=== PATIENT | female | born 1985 | race Caucasian/White ===

== ENCOUNTER 2022-12-03 00:31 | Emergency (ER) | payer MEDICAID ==
[~2022-12-03] VITALS: Ht 165.1 cm; Wt 70.0 kg
[2022-12-03 00:50] VITALS: BP 120/69; PULSE 93; RESP 18; TEMP 98.2; O2SAT 100
== END 2022-12-03 06:55 | disposition home or self-care (01) ==
LOC: ER 00:40
DX: F10.129 Alcohol abuse with intoxication, unspecified (principal); Y90.8 Blood alcohol level of 240 mg/100 ml or more
CPT/HCPCS: 80320; 36415; 99283; Z7610; G0480